=== PATIENT | female | born 1990 | race African-American/Black ===

== ENCOUNTER 2024-06-03 04:51 | Emergency (ER) | payer MEDICAID ==
[~2024-06-03] VITALS: Ht 177.8 cm; Wt 101.0 kg
[2024-06-03 04:56] VITALS: BP 174/80
[2024-06-03] MEDS: PREDNISONE 20MG TABLET PO STA (06:02)
[2024-06-03 06:15] VITALS: PULSE 98; RESP 22; O2SAT 97
[2024-06-03] MEDS: ALBUTEROL (0.083%) 2.5MG/3ML NEB HHN STA (06:27)
[2024-06-03] MEDS: IPRATROPIUM BROMIDE (0.02%) 0.5MG/2.5ML NEB HHN STA (06:27)
[2024-06-03] MEDS ORDERED: ALBU18HF2 IH (07:39)
[2024-06-03] MEDS ORDERED: P50 PO (07:39)
[2024-06-03 08:25] VITALS: PULSE 86; RESP 18; TEMP 36.78072; O2SAT 98
[2024-06-03] MEDS ORDERED: ALBU05 NEB (08:25)
== END 2024-06-03 08:25 | disposition home or self-care (01) ==
LOC: ER 05:16
DX: J45.901 Unspecified asthma with (acute) exacerbation (principal)
CPT/HCPCS: 71045; 94644; 99285; J7512; Z7610; 94070; 94640; 94664; 98960